=== PATIENT | male | born 1975 | race Caucasian/White ===

== ENCOUNTER 2023-04-12 23:08 | Emergency (ER) | payer OTHER, SELFPAY ==
[2023-04-12 23:18] VITALS: BP 122/65; PULSE 75; RESP 18; TEMP 36.3; O2SAT 97; BMI 29.5
--- NOTE | 2023-04-13 01:20 | ED.GENADULT ---
HPI - General Adult General Chief complaint: Skin/Abscess/Foreign Body Stated complaint: lower abd pain Time Seen by Provider: 04/13/23 00:57 Source: patient Mode of arrival: ambulatory Limitations: no limitations History of Present Illness HPI narrative: 47-year-old male prediabetic patient came in for evaluation of left-sided lower chest/upper abdominal rash only on the left side and patient is concern of shingles. No fever, no chills, no visual symptoms or eye pain foot to sensitivity. No sick contact. Pain started 1st as burning sensation to the left side of the chest and upper abdomen now the rash is full of fluids. Related Data Previous Rx's Medication Instructions Recorded oxycodone 5 mg tablet 5 mg PO Q8H PRN pain #10 tabs 04/13/23 prednisone 20 mg tablet 20 mg PO BID #10 tabs 04/13/23 valacyclovir 1 gram tablet 1,000 mg PO TID #7 tabs 04/13/23 (Valtrex) Allergies Allergy/AdvReac Type Severity Reaction Status Date / Time No Known Allergies Allergy Verified 04/12/23 23:16 [No Known Allergies*] Review of Systems Review of Systems: All other systems are reviewed and are negative Constitutional: Reports as per HPI and Reports no additional constitutional complaints Eyes: Reports as per HPI and Reports no additional eye complaints Reports system reviewed and no additional complaints, except as documented Cardiovascular: Reports as per HPI and Reports no additional cardiovascular complaints Respiratory: Reports as per HPI and Reports no additional respiratory complaints Gastrointestinal: Reports as per HPI and Reports no additional gastrointestinal complaints Genitourinary: Reports no additional female genitourinary complaints Musculoskeletal: Reports no additional musculoskeletal complaints Skin/Breast: Reports system reviewed and no additional complaints, except as docu Psychiatric: Reports no additional psychiatric complaints Endocrine: Reports no additional endocrine complaints Hematologic/Lymphatic: Reports no additional hematologic/lymphatic complaints Allergic/Immunologic: Reports no additional allergic/immunologic complaints Reports system reviewed and no additional complaints, except as documented and Reports Abnormal speech present PENDING SALE TO [facility] Social History Social History Advance Directives: No Advance Directives Information Provided: No Physical Exam ED Vital Signs: Vital Signs - 24 hr 04/12/23 23:18 Temperature 97.4 F Pulse Rate 75 Respiratory Rate 18 Blood Pressure 122/65 Pulse Oximetry 97 Oxygen Delivery Method Room Air BMI result Body Mass Index 29.5 Vital signs have been reviewed as appeared to be correct. Blood pressure normal. Heart rate normal. Respiration rate normal. Temperature normal. Oxygen saturation normal. Appearance: Alert. Oriented X3. No acute distress. Head: Normal external exam. Normocephalic. Atraumatic. No Cash signs noted. No raccoon eyes noted Eyes: PERRLA. EOMI. Conjunctiva and sclera normal. Eyelids normal. ENT: TM's Normal. Pharynx normal. Uvula midline. Moist mucous membranes. No trismus noted. No drooling noted. No muffled voice noted. Neck: Normal inspection. Neck supple. FROM. No adenopathy. Thyroid Normal. No meningeal signs. No neck mass noted. CVS: Normal heart rate and rhythm. Heart sound normal. No murmurs noted. Pulses normal throughout. Respiratory: No respiratory distress. Painless inspiration. Breath sounds normal. No wheezes/rales/rhonchi noted. Chest nontender. Diffuse vesicular rashes on the left side of the chest do not pass the midline along the intercostal dermatomes rash on erythematous base. No accessory muscle usage noted or decreased air movement noted. Abdomen: Soft and nontender. Bowel sounds normal in all 4 quadrants. No distention noted. No organomegaly noted. No visible injury noted. Back: No CVA tenderness. Full range of motion noted. Skin: Skin warm and dry. Normal skin color. Normal skin turgor. No rashes/lesions/lacerations noted. Extremities: No lower extremity edema. Extremities exhibit normal range of motion. Extremities nontender. Neuro: Oriented X 3. Cranial nerve exam: II-XII are grossly intact No motor deficit. No sensory deficit. Reflexes normal. Course Course Course Narrative: Herpes zoster to the left side of the chest will start the patient on Valtrex/prednisone/oxycodone and follow-up with PCP. Patient was instructed to seek immediate medical attention if he develops any ophthalamic symptoms. Medical Decision Making Differential Diagnosis Differential Diagnoses: The differential diagnosis associated with the presentation includes (contact dermatitis, herpes zoster, cellulitis.) Admission/Observation Consideration of admission/observation: Escalation of care including admission/observation considered Lab Data MDM Lab Attestation statement: I reviewed the patient's lab results. Discharge Plan Discharge Clinical Impression: Herpes zoster Patient Disposition: Home, Self-Care Instructions: Shingles (ED) Prescriptions: New valacyclovir [Valtrex] 1 gram tablet 1,000 mg PO TID Qty: 7 0RF prednisone 20 mg tablet 20 mg PO BID Qty: 10 0RF oxycodone 5 mg tablet 5 mg PO Q8H PRN (Reason: pain) Qty: 10 0RF Rx Instructions: Partial Fill upon patient request.
[2023-04-13] MEDS: oxyCODONE HCl Immed Release 5 MG TABLET PO (01:26)
[2023-04-13 01:34] LABS: Glucose, Whole Blood 88 mg/dL (60-115)
== END 2023-04-13 01:29 | disposition home or self-care (01) ==
PROVIDERS: Emergency Provider Emergency Medicine
DX: B02.8 Zoster with other complications (principal); R21 Rash and other nonspecific skin eruption; Z79.899 Other long term (current) drug therapy
CPT/HCPCS: 82947; 99283

== ENCOUNTER 2023-11-09 08:46 | Outpatient (AMB) | payer OTHER, SELFPAY ==
[2023-11-09 08:50] VITALS: BP 122/78; PULSE 77; O2SAT 98; BMI 30.2
--- NOTE | 2023-11-09 08:50 | A.OFFPC_ITS ---
Vital Signs 11/09/23 08:50 Height 5 ft 9 in Weight 204 lb 8 oz BMI 30.2 BP 122/78 Blood Pressure Location Rt brachial Position Sitting Pulse 77 Pulse Source Pulse Oximeter Pulse Oximetry (%) 98 Oxygen Delivery Method Room Air Intake Visit Reasons: Est Care Pre-Diabetic Intake Note: Pt is here to est care Allergies No Known Allergies [No Known Allergies*] Allergy (Verified 11/09/23 09:02) Medication List - Last Reconciled 11/09/23 by FEDE Etienne No Known Home Meds Tobacco use date assessed: 11/09/23 Dental Screening Dental Screen Date: 11/09/23 Did you have a dental visit in the last 12 months?: No Did you have a dental problem in the last 6 months where you did not have access to dental care?: No Was dental information given to patient?: No HPI HPI Comments History of Present Illness Details Patient is a 48-year-old male here to establish care. He has not seen a primary care physician in 6 years. He is due for PSA, will order. He is due for colonoscopy, will refer. He is up-to-date on his immunizations. Patient states that he has a primary concern of intermittent bilateral flank pain, and increasing GERD symptoms over the past year. The patient states that he has tried omeprazole in the past with little relief. He states that when he wakes up in the morning he can feel reflux in the back of his throat. Denies sore throat, cough.Patient states that he has to sleep sitting upright at night. he states that his stomach does get distended, and can feel pain under his ribs bilaterally. He does get some relief after bowel movement. denies constipation, diarrhea. He states that his stool consistency is normal in the color is normal as well. [facility] Family History Maternal Grandfather Prostate cancer Social History Housing: House Patient Tobacco Use Status: Former Tobacco user Quit Date: quit 30 years ago e-Cigarette/Vaping Use: Never Used Second Hand Smoke Exposure: No service: No Current occupational status: employed Current occupational exposures/hazards: No Cognitive needs: No Hearing needs: No Vision needs: No Questionnaire PHQ-9 Over the last 2 weeks, how often have you been bothered by any of the following problems? 1. Little interest or pleasure in doing things: not at all 2. Feeling down, depressed, or hopeless: not at all 3. Trouble falling or staying asleep, or sleeping too much: not at all 4. Feeling tired or having little energy: not at all 5. Poor appetite or overeating: not at all 6. Feeling bad about yourself - or that you are a failure or have let yourself or your family down: not at all 7. Trouble concentrating on things, such as reading the newspaper or watching television: not at all 8. Moving or speaking so slowly that other people could have noticed. Or the opposite - being so fidgety or restless that you have been moving around a lot more than usual: not at all 9. Thoughts that you would be better off or of hurting yourself in some way: not at all Total score: 0 Depression Screening Interpretation: Negative Depression Screening Done: Yes 16235 - PHQ-9 Billing: Yes Source: Developed by Drs. Rahat Brewer, Zoila Smith, Willi Cheng and colleagues, with an educational caleb from [employer]. Thrive Questionnaire Date Thrive assessed: 11/09/23 I am a: Patient What is your living situation today?: I have a steady place to live Within the past 12 months, did the food you bought not last and you didn't have the money to get more?: Never true Within the past 12 months, did you worry whether your food would run out before you got money to buy more?: Never true Do you have trouble paying for medicines?: No Do you have trouble getting transportation to medical appointments?: No Do you have trouble paying your heating and electricity bill?: No Do you have trouble taking care of your child, family member or friend?: No Do you have trouble with day-to-day activities such as bathing, preparing meals, shopping, managing finances, etc.?: No Are you currently unemployed and looking for a job?: No Are you interested in more education?: No THRIVE Score: 0 AUDIT C Alcohol Use Questionnaire (AUDIT-C) 1. How often do you have a drink containing alcohol?: 2-4 times a month 2. How many drinks containing alcohol do you have on a typical day when you are drinking?: 3 or 4 3. How often do you have six or more drinks on one occasion?: Less than monthly Total Score: 4 ONESIMO-7 AMB Questionnaire ONESIMO-7 Date ONESIMO - 7 assessed: 11/09/23 Feeling nervous, anxious, or on edge: 0 = Not at all Not being able to stop or control worryin = Not at all Worrying too much about different things: 0 = Not at all Trouble relaxin = Not at all Being so restless that it is hard to sit still: 0 = Not at all Becoming easily annoyed or irritable: 0 = Not at all Feeling afraid as if something awful might happen: 0 = Not at all Total ONESIMO-7 score (0-4 normal; 5-9 mild; 10-14 moderate; 15-21 severe): 0 Source: Developed by Drs. Rahat Brewer, Zoila Smith, Willi Cheng and colleagues, with an educational caleb from [employer]. ONESIMO-7 Assessment Billing ONESIMO-7 Assessment Tool: ONESIMO-7 Assessment 89900 Review of Systems Const Details: Constitutional : No Weight loss, No Fever, No Chills, No Fatigue, No Malaise ENT/Mouth : No sore throat, No Rhinorrhea. Patient states he bites the side of his mouth and tongue when sleeping. Eyes: Admits re-occuring stye of the left upper eyelid. Admits eye pain. Cardiovascular : No Chest Pain, No SOB, No Dyspnea on Exertion, No Orthopnea, No Edema, No Palpitations Respiratory : No Cough, No Sputum, No Wheezing Gastrointestinal : No Nausea, No Vomiting, No Diarrhea, No Constipation, No Hematochezia, No Melena Genitourinary : No Dysuria, No Urinary Frequency, No Hematuria. Admits intermittent bilateral flank pain that can get worse with movement. Admits intermittent abdominal distention. Musculoskeletal : No joint pain, No Myalgias, No Joint Swelling Skin : Admits excema on left inner thigh, itchiness, and irriated by his pant seems. Neuro : No Weakness, No Numbness, No Dizziness, No Headache Psych : No Anxiety/Panic, No Depression Heme/Lymph: No Bruising, No Bleeding,No Lymphadenopathy Endocrine : No Polyuria, No Polydipsia All other systems reviewed and are negative Physical exam (Primary Care) Vital Signs: Last Vital Signs Pulse 77 11/09/23 08:50 BP 122/78 11/09/23 08:50 Pulse Ox 98 11/09/23 08:50 Oxygen Delivery Method Room Air 11/09/23 08:50 Vital signs reviewed stable. BMI result Body Mass Index 30.2 Tobacco/Smoking Status: Tobacco use Status Tobacco use date assessed 11/09/23 11/09/23 08:57 Patient Tobacco Use Status Former Tobacco user 11/09/23 08:57 e-Cigarette/Vaping Use Never Used 11/09/23 08:57 Depression Screening Interpretation: Negative Const Other: Appearance: Alert.? Oriented X3.? Head: Normocephalic, atraumatic. Eyes: Pupils equal, round and reactive to light.?Style of left upper eyelid. No discharge. No vision change. ENT: Pharynx normal.?+ Bite lynn on side of tongue and mouth. Neck: Normal inspection.? Neck supple.?Full ROM. CVS: Normal heart rate and rhythm.? Pulses normal.? Respiratory: No respiratory distress.? Breath sounds normal.? Abdomen: Soft and nontender.? Skin: Scaling patch, quarter sized, inner left medial thigh. Extremities: No lower extremity edema.? No calf ttp. 5/5 strength to bilateral upper and lower extremities Back: No midline tenderness, no C-spine tenderness, full range of motion, CVA tenderness bilaterally Neuro: Oriented X 3.? No motor deficit.? No sensory deficit. 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 Will give patient pantoprazole sodium to be taken in the morning every day. Patient understands that it may take several weeks for acid level in his stomach to reduce. He has also been educated on foods to avoid. He has been educated on lifestyle changes. Code(s): K21.9 - Gastro-esophageal reflux disease without esophagitis Qualifiers: Esophagitis presence: esophagitis presence not specified Qualified Code(s): K21.9 - Gastro-esophageal reflux disease without esophagitis (2) Flank pain: Code(s): R10.9 - Unspecified abdominal pain Plan: Patient states he has occasional intermittent flank pain bilaterally. Pain is sometimes worse in the morning after sleeping on the side. Will order renal ultrasound to rule out renal calculi. (3) Hordeolum externum (stye): Comment: Patient has recurrent stye of the left eyelid. Will give erythromycin base to be taken as directed. Patient will get referral to Ophthalmology. Denies change in vision Code(s): H00.019 - Hordeolum externum unspecified eye, unspecified eyelid Qualifiers: Laterality: left Eyelid: upper Qualified Code(s): H00.014 - Hordeolum externum left upper eyelid Plan: Will refer to Ophthalmology (4) Atopic eczema: Comment: Patient has scaling patch on left inner thigh roughly size the corner. Stride [id number] cortisone cream with little relief. Has tried antifungal cream with little relief. Will order triamcinolone, will refer to Dermatology Code(s): L20.9 - Atopic dermatitis, unspecified Qualifiers: Atopic dermatitis type: unspecified Qualified Code(s): L20.9 - Atopic dermatitis, unspecified Plan: Take your medications as prescribed. If you were prescribed antibiotics today, it is important that you take your medication to their entirety, do not skip any doses, do not finish them early. Follow-up with your primary care provider this week. Return to the emergency department with new or worsening symptoms. Such as fevers, chills, chest pain, shortness of breath, nausea, vomiting, dizziness, headache, vision changes, lethargy In case of emergency call 911 Plan Will follow-up with physical exam in 3 months. Orders: Orders Complete Blood Count Auto Diff Today Z13.0 - Encounter for screening for diseases of the blood and blood-forming organs and certain disorders involving the immune mechanism Lipid Panel Today Z13.220 - Encounter for screening for lipoid disorders PSA,Total (Free>4and<10) Today Z12.5 - Encounter for screening for malignant neoplasm of prostate Vitamin B6 Today Z13.21 - Encounter for screening for nutritional disorder Vitamin B12 Today Z13.21 - Encounter for screening for nutritional disorder UA CC w/rflx Micro + Cult Today Z13.89 - Encounter for screening for other disorder AMB Hemoglobin A1c Today Z13.9 - Encounter for screening, unspecified Lipase Today R10.9 - Unspecified abdominal pain US renal BI Today R10.9 - Unspecified abdominal pain Comprehensive Met. Panel Today R73.03 - Prediabetes Vitamin D 25-OH (D2 and D3) Today Z13.21 - Encounter for screening for nutritional disorder TSH reflex Free T4 Today Z13.29 - Encounter for screening for other suspected endocrine disorder Referrals Ophthalmology Referral H00.019 - Hordeolum externum unspecified eye, unspecified eyelid Gastroenterology Referral K21.9 - Gastro-esophageal reflux disease without esophagitis, Z12.11 - Encounter for screening for malignant neoplasm of colon Dermatology Referral L20.9 - Atopic dermatitis, unspecified Medications: New simethicone (Gas Relief (simethicone)) 180 mg PO ONCE PRN 30 caps 0RF abdominal distention triamcinolone acetonide 0.5% Apply directly to itchy patch 1 appl topical DAILY 15 grams 0RF erythromycin 0.5 inches ophthalmic (eye) BID 3.5 grams 0RF pantoprazole 20 mg PO DAILY 90 tabs 0RF pantoprazole 40 mg (2 x 20 mg) PO DAILY 90 tabs 0RF Coding Level of Care Code New Pt Level 3 (88025) Diagnoses Gastroesophageal reflux disease, unspecified whether esophagitis present K21.9 Esophagitis presence: esophagitis presence not specified Flank pain R10.9 Hordeolum externum of left upper eyelid H00.014 Laterality: left Eyelid: upper Atopic dermatitis, unspecified type L20.9 Atopic dermatitis type: unspecified Additional Codes ONESIMO-7 Assessment Billing - ONESIMO-7 Assessment Tool: ONESIMO-7 Assessment 52663 ([id number]) Time Spent (min) 35
== END 2023-11-09 10:05 | disposition home or self-care (01) ==
PROVIDERS: Visit Provider Nurse Practitioner Primary Care
DX: K21.9 Gastro-esophageal reflux disease without esophagitis (principal); R10.9 Unspecified abdominal pain; H00.014 Hordeolum externum left upper eyelid; L20.9 Atopic dermatitis, unspecified
CPT/HCPCS: 83036; 99204

== ENCOUNTER 2023-11-09 09:51 | Outpatient (REF) | payer OTHER, SELFPAY ==
[2023-11-09 13:27] LABS: MANUAL DIFF FLAG NO
[2023-11-09 13:37] LABS: Appearance Urine Clear; Color Urine Yellow; Glucose Urine UA Negative (Negative); Leukocyte Esterase Urine Negative (Negative); Nitrite Urine Negative (Negative); Specific Gravity - Urine 1.025 (1.005-1.025); Urine Blood Negative (Negative); Urine Ketones Negative (Negative); Urine Protein Negative (Neg-Trace)
[2023-11-09 13:41] LABS: Basophils Absolute Auto 0.1 X10*3/uL (0.0-0.2); Eosinophils Absolute Auto 0.2 X10*3/uL (0.0-0.4); Hematocrit 45.7 % (42.0-52.0); Imm Gran Abs Auto 0.01 X10*3/uL (0.00-0.03); Imm Gran Pct Auto 0.2 % (0.0-0.4); Lymphocytes Absolute Auto 1.8 X10*3/uL (1.2-4.9); Lymphocytes Percent Auto 30.4 % (20-40); Mean Corpuscular HGB Conc 32.8 g/dl (31.0-36.0); Mean Corpuscular Volume 88.2 fL (80.0-98.0); Mean Platelet Volume 10.8 fL (9.4-12.4); Monocytes Absolute Auto 0.5 X10*3/uL (0.1-1.2); Monocytes Percent Auto 8.5 % (2-11); Neutrophils Absolute Auto 3.3 x10*3/uL (2.0-8.3); Neutrophils Percent Auto 56.9 % (45-73); Platelet Count 227 X10*3/uL (160-400); Red Blood Count 5.18 X10*6/uL (4.60-5.80); Red Cell Distribution Width 12.5 % (11.0-16.0); White Blood Count 5.8 X10*3/uL (4.8-10.8)
[2023-11-09 13:57] LABS: Alanine Aminotransferase 53 U/L (0-40); Albumin Level 4.5 g/dL (3.5-5.0); Alkaline Phosphatase 91 U/L (39-117); Anion Gap 10 (12-20); Aspartate Amino Transferase 29 U/L (5-37); Bilirubin Total 0.4 mg/dL (0.0-1.0); Blood Urea Nitrogen 15 mg/dL (9-16); Calcium 9.5 mg/dL (8.4-10.2); Carbon Dioxide 28 mmol/L (22-29); Chloride 106 mmol/L (96-108); Cholesterol 210 mg/dL (<200); Estimated Glomerular Filt Rate > 60; Glucose Random 93 mg/dL (60-115); HDL Cholesterol 56 mg/dL (>40); LDL Cholesterol Calculated 144 mg/dL (<100); Lipase 19 U/L (8-78); Sodium 140 mmol/L (135-145); Total Protein 7.7 g/dL (6.5-8.0); Triglycerides 52 mg/dL (<150)
[2023-11-09 14:11] LABS: PSA,Total (Free>4and<10) 0.66 ng/mL (0.00-4.00)
[2023-11-09 14:13] LABS: TSH reflex Free T4 1.35 uIU/mL (0.32-4.0)
[2023-11-09 14:18] LABS: Vitamin B12 531 pg/mL (200-900)
[2023-11-13 15:22] LABS: Vitamin B6 9.9 ng/mL (2.1-21.7)
[2023-11-13 15:33] LABS: Vitamin D 25-OH, D2 <4 ng/mL; Vitamin D 25-OH, D3 16 ng/mL; Vitamin D 25-OH, Total 16 ng/mL (30-100)
== END 2023-11-09 09:52 | disposition home or self-care (01) ==
LOC: HO.HMGCLDS 09:51
PROVIDERS: PCP Nurse Practitioner Primary Care; Visit Provider Nurse Practitioner Primary Care
DX: R73.03 Prediabetes (principal); R10.9 Unspecified abdominal pain; Z13.21 Encounter for screening for nutritional disorder; Z13.0 Encounter for screening for diseases of the blood and blood-forming organs and certain disorders involving the immune mechanism; Z13.220 Encounter for screening for lipoid disorders; Z12.5 Encounter for screening for malignant neoplasm of prostate; Z13.89 Encounter for screening for other disorder; Z13.29 Encounter for screening for other suspected endocrine disorder
CPT/HCPCS: 36415; 80053; 80061; 81003; 82306; 82607; 83690; 84153; 84207; 84443; 85025

== ENCOUNTER 2023-11-28 08:38 | Outpatient (REF) | payer OTHER, SELFPAY ==
--- NOTE | ~2023-11-28 | US_ITS ---
EXAMINATION: US RETROPERITONEAL LIMITED (RENAL ONLY) CLINICAL INFORMATION: Unspecified abdominal pain. Flank pain. COMPARISON: None available. TECHNIQUE: Real-time imaging of the kidneys. FINDINGS: RIGHT KIDNEY: 12.2 x 6.1 x 6.0 cm (SAG x AP x TRV). The kidney is normal in size, contour, and echogenicity. Renal cortical thickness is normal. No calculi or focal parenchymal lesions. No hydronephrosis. LEFT KIDNEY: 10.6 x 5.1 x 5.0 cm (SAG x AP x TRV). The kidney is normal in size, contour, and echogenicity. Renal cortical thickness is normal. No calculi or focal parenchymal lesions. No hydronephrosis. US/US renal BI IMPRESSION: Normal renal ultrasound. No nephrolithiasis or hydronephrosis visible.
== END 2023-11-28 08:39 | disposition home or self-care (01) ==
LOC: HO.HMGCX 08:38
PROVIDERS: PCP Nurse Practitioner Primary Care; Visit Provider Nurse Practitioner Primary Care
DX: R10.9 Unspecified abdominal pain (principal)
CPT/HCPCS: 76775

== ENCOUNTER 2023-12-13 20:44 | Emergency (ER) | payer OTHER, SELFPAY ==
[2023-12-13 21:06] VITALS: BP 129/77; PULSE 89; RESP 18; TEMP 36.6; O2SAT 99; BMI 28.4
[2023-12-13 22:01] LABS: IDNOW Serial# 58CA691E; Strep A Nucleic Acid Negative (Negative)
[2023-12-13 22:30] LABS: Influenza A PCR NEGATIVE (Negative); Influenza B PCR NEGATIVE (Negative); Resp Syncy Virus RNA Qual PCR NEGATIVE (Negative); SARS COV2 PCR INHOUSE NEGATIVE (Negative)
[2023-12-14 00:43] VITALS: BP 109/70; PULSE 82; RESP 16; TEMP 36.9; O2SAT 98
[2023-12-14 02:52] VITALS: BP 143/82; PULSE 72; RESP 16; TEMP 36.9; O2SAT 98
--- NOTE | 2023-12-14 03:57 | ED.GENADULT ---
HPI - General Adult General Chief complaint: Upper Respiratory Symptoms Stated complaint: severe headache Time Seen by Provider: 12/14/23 03:46 Source: patient Mode of arrival: ambulatory Limitations: no limitations History of Present Illness HPI narrative: Patient comes emergency room complaining of head pressure, sore throat, congestion. Patient states that the main reason he came is because of the headache. Patient states that the headache starts in the back and moves up to the top of the head. Patient states that he has been taking Tylenol without any relief. Denies vomiting, denies any trauma. Related Data Previous Rx's Medication Instructions Recorded erythromycin 5 mg/gram (0.5 %) eye 0.5 inch ophthalmic (eye) BID #3.5 11/09/23 ointment grams pantoprazole 20 mg tablet,delayed 40 mg (2 x 20 mg) PO DAILY #90 tabs 11/09/23 release simethicone 180 mg capsule (Gas 180 mg PO ONCE PRN abdominal 11/09/23 Relief (simethicone)) distention #30 caps triamcinolone acetonide 0.5 % 1 appl topical DAILY #15 grams 11/09/23 topical cream ketorolac 10 mg tablet 10 mg PO Q8H PRN pain #7 tabs 12/14/23 Allergies Allergy/AdvReac Type Severity Reaction Status Date / Time No Known Allergies Allergy Verified 12/13/23 21:06 [No Known Allergies*] Review of Systems Review of Systems: Constitutional : No Weight loss, No Fever, No Chills, No Night Sweats, No Fatigue, No Malaise ENT/Mouth : No Hearing loss, No Ear Pain, complaining of Nasal Congestion, No Sinus Pain, No Hoarseness, No sore throat, No Rhinorrhea, No Swallowing Difficulty Eyes: No Eye Pain, No Swelling, No Redness, No Foreign Body, No Discharge, No Vision Changes Cardiovascular : No Chest Pain, No SOB, No Dyspnea on Exertion, No Orthopnea, No Edema, No Palpitations Respiratory : No Cough, No Sputum, No Wheezing, No Smoke Exposure, No Dyspnea Gastrointestinal : No Nausea, No Vomiting, No Diarrhea, No Constipation, No abdominal Pain, No Hematochezia, No Melena Genitourinary : no irregular bleeding, No Dysuria, No Urinary Frequency, No Hematuria, No Urinary Incontinence, No Urgency, No Flank Pain, No Urinary Flow Changes, No Hesitancy Musculoskeletal : No joint pain, No Myalgias, No Joint Swelling Skin : No Skin Lesions, No rash Neuro : No Weakness, No Numbness, No Paresthesias, No Loss of Consciousness, No Dizziness, complaining of Headache Psych : No Anxiety/Panic, No Depression, No SI/HI/AH/VH, No Social Issues, Heme/Lymph: No Bruising, No Bleeding,No Lymphadenopathy Endocrine : No Polyuria, No Polydipsia, No Temperature Intolerance [facility] Family History Family History Maternal Grandfather Prostate cancer Social History Social History Housing: House Patient Tobacco Use Status: Former Tobacco user Quit Date: quit 30 years ago e-Cigarette/Vaping Use: Never Used Second Hand Smoke Exposure: No Advance Directives: No Advance Directives Information Provided: No service: No Current occupational status: employed Current occupational exposures/hazards: No Cognitive needs: No Hearing needs: No Vision needs: No Physical Exam ED Vital Signs: Vital Signs - 24 hr 12/13/23 21:06 12/14/23 00:43 12/14/23 02:52 Temperature 97.9 F 98.4 F 98.4 F Pulse Rate 89 82 72 Respiratory Rate 18 16 16 Blood Pressure 129/77 109/70 143/82 H Pulse Oximetry 99 98 98 Oxygen Delivery Method Room Air Room Air Room Air BMI result Body Mass Index 28.4 Const Other: Appearance: Alert. Oriented X3. No acute distress. Eyes: Pupils equal, round and reactive to light. ENT: Pharynx normal. Neck: Normal inspection. Neck supple. No lymph nodes noted. No crepitus CVS: Normal heart rate and rhythm. Pulses normal. Normal S1 and S2 Respiratory: No respiratory distress. Breath sounds normal. No Wheezing. No rales Abdomen: Soft and nontender. No rigidity. No distention. Skin: Skin warm and dry. Normal skin color. Normal skin turgor. Extremities: No lower extremity edema. No Lacerations. No Rash Neuro: Oriented X 3. No motor deficit. No sensory deficit. Moving all extremities. No slurred speech. CN 2 through 12 grossly intact Psych: calm, cooperative, normal affect Medical Decision Making Medical Decision Making MDM Narrative: -my interpretation of labs: Patient tested negative for COVID, influenza and RSV. -patient likely has a tension headache, bilateral, in the back, no pain in the temples, no sinus pressure -patient being medicated with IV fluids, Reglan, Toradol, Benadryl Differential Diagnosis Differential Diagnoses: The differential diagnosis associated with the presentation includes (Sinusitis, tension headache, migraine headache) Lab Data [facility] Lab Attestation statement: I reviewed the patient's lab results. Labs: Lab Results 12/13/23 12/13/23 Range/Units 21:32 21:33 Influenza Type A (PCR) NEGATIVE (Negative) Influenza Type B (PCR) NEGATIVE (Negative) RSV RNA Qual (PCR) NEGATIVE (Negative) SARS-CoV-2 RNA (RT-PCR) NEGATIVE (Negative) S. pyogenes GrpA WILSON Negative (Negative) Discharge Plan Discharge Clinical Impression: Headache, Acute viral syndrome Patient Disposition: Home, Self-Care Instructions: Acute Headache (ED) Additional Instructions: Please follow-up with your primary care physician tomorrow. If you have any worsening or new symptoms, please return to the emergency room or call 911 Prescriptions: New ketorolac 10 mg tablet 10 mg PO Q8H PRN (Reason: pain) Qty: 7 0RF Rx Instructions: Do not use this medication with NSAIDs No Action simethicone [Gas Relief (simethicone)] 180 mg capsule 180 mg PO ONCE PRN (Reason: abdominal distention) Qty: 30 0RF triamcinolone acetonide 0.5 % cream 1 appl topical DAILY Qty: 15 0RF Rx Instructions: Apply directly to itchy patch erythromycin 5 mg/gram (0.5 %) ointment 0.5 inch ophthalmic (eye) BID Qty: 3.5 0RF pantoprazole 20 mg tablet,delayed release (DR/EC) 40 mg PO DAILY Qty: 90 0RF Stand Alone Forms: Work/School Release
[2023-12-14] MEDS: 0.9 % Sodium Chloride 1,000 ML 999 ML IVCONT (04:13)
[2023-12-14] MEDS: Metoclopramide HCl 10 MG/2 ML VIAL IVPUSH (04:16)
[2023-12-14] MEDS: Ketorolac Tromethamine 30 MG/ML VIAL IVPUSH (04:16)
[2023-12-14] MEDS: diphenhydrAMINE HCL 50 MG/ML VIAL 12.5 MG IVPUSH (04:16)
[2023-12-14 04:17] VITALS: BP 105/50; PULSE 68; RESP 16; TEMP 36.3; O2SAT 97
[2023-12-14 05:08] VITALS: BP 105/50; PULSE 68; RESP 16; TEMP 36.3; O2SAT 97
== END 2023-12-14 05:09 | disposition home or self-care (01) ==
PROVIDERS: Emergency Provider Emergency Medicine; PCP Nurse Practitioner Primary Care
DX: B34.9 Viral infection, unspecified (principal); R51.9 Headache, unspecified; J02.9 Acute pharyngitis, unspecified; Z03.818 Encounter for observation for suspected exposure to other biological agents ruled out
CPT/HCPCS: 0241U; 87651; 96374; 96375; 99284; J1200; J1885; J2765

== ENCOUNTER 2023-12-27 09:07 | Outpatient (AMB) | payer OTHER, SELFPAY ==
[2023-12-27 09:14] VITALS: BP 110/72; PULSE 83; O2SAT 98; BMI 28.1
--- NOTE | 2023-12-27 09:14 | MHC.PC.OV ---
Vital Signs 12/27/23 09:14 Height 6 ft Weight 207 lb 4 oz BMI 28.1 BP 110/72 Blood Pressure Location Rt brachial Position Sitting Pulse 83 Pulse Source Pulse Oximeter Pulse Oximetry (%) 98 Oxygen Delivery Method Room Air Intake Visit Reasons: Annual PE Intake Note: Pt is here for his Annual PE Allergies No Known Allergies [No Known Allergies*] Allergy (Verified 12/27/23 10:58) Medication List - Last Reconciled 12/27/23 by FEDE Etienne pantoprazole 40 mg (2 x 20 mg) PO DAILY triamcinolone acetonide 0.5% 1 appl topical DAILY Tobacco use date assessed: 12/27/23 Dental Screening Dental Screen Date: 12/27/23 Did you have a dental visit in the last 12 months?: No Did you have a dental problem in the last 6 months where you did not have access to dental care?: No Was dental information given to patient?: No HPI HPI Comments History of Present Illness Details Patient is a 48-year-old male in for a sick visit. Patient has a past medical history significant for GERD and abdominal bloating. Patient has GI appointment in 3 weeks, has been taking pantoprazole sodium with good effect. Patient states that he does still have GERD symptoms especially after he drinks water, will order upper GI series. Patient has been educated on proper diet, and foods he should avoid specifically that exacerbate his GERD symptoms. Patient denies vomiting, nausea, diarrhea, chest pain, shortness a breath. Does offer complaint of intermittent constipation. Patient also has hordeolum of left eyelid. Patient has utilize up the Jose Maria ointment in the past with little effect. Has tried warm compress with little effect. Patient has ophthalmology appointment in 1 day does not want to start other medication at this time. Denies vision changes, denies drainage, denies orbital pain, denies fever. Does offer complaint of tenderness over lesion. Patient offers complaint of anxiety, often bites his fingernails, pulls out his hair, frequently eats food, or bites his lip for stress relief. Patient denies SI/HI. Patient states he would like to try therapy. Will meet with community navigator to assist with establishing care with therapist [facility] Family History Maternal Grandfather Prostate cancer Social History Housing: House Patient Tobacco Use Status: Former Tobacco user Quit Date: quit 30 years ago e-Cigarette/Vaping Use: Never Used Second Hand Smoke Exposure: No service: No Current occupational status: employed Current occupational exposures/hazards: No Cognitive needs: No Hearing needs: No Vision needs: No Questionnaire PHQ-9 Over the last 2 weeks, how often have you been bothered by any of the following problems? 1. Little interest or pleasure in doing things: not at all 2. Feeling down, depressed, or hopeless: not at all 3. Trouble falling or staying asleep, or sleeping too much: not at all 4. Feeling tired or having little energy: not at all 5. Poor appetite or overeating: not at all 6. Feeling bad about yourself - or that you are a failure or have let yourself or your family down: not at all 7. Trouble concentrating on things, such as reading the newspaper or watching television: not at all 8. Moving or speaking so slowly that other people could have noticed. Or the opposite - being so fidgety or restless that you have been moving around a lot more than usual: not at all 9. Thoughts that you would be better off or of hurting yourself in some way: not at all Total score: 0 Depression Screening Interpretation: Negative Depression Screening Done: Yes 48044 - PHQ-9 Billing: Yes Source: Developed by Drs. Rahat Brewer, Zoila Smith, Willi Cheng and colleagues, with an educational caleb from [employer]. Thrive Questionnaire Date Thrive assessed: 11/09/23 I am a: Patient What is your living situation today?: I have a steady place to live Within the past 12 months, did the food you bought not last and you didn't have the money to get more?: Never true Within the past 12 months, did you worry whether your food would run out before you got money to buy more?: Never true Do you have trouble paying for medicines?: No Do you have trouble getting transportation to medical appointments?: No Do you have trouble paying your heating and electricity bill?: No Do you have trouble taking care of your child, family member or friend?: No Do you have trouble with day-to-day activities such as bathing, preparing meals, shopping, managing finances, etc.?: No Are you currently unemployed and looking for a job?: No Are you interested in more education?: No THRIVE Score: 0 AUDIT C Alcohol Use Questionnaire (AUDIT-C) 1. How often do you have a drink containing alcohol?: 2-4 times a month 2. How many drinks containing alcohol do you have on a typical day when you are drinking?: 1 or 2 3. How often do you have six or more drinks on one occasion?: Never Total Score: 2 ONESIMO-7 AMB Questionnaire ONESIMO-7 Date ONESIMO - 7 assessed: 12/27/23 Feeling nervous, anxious, or on edge: 0 = Not at all Not being able to stop or control worryin = Not at all Worrying too much about different things: 0 = Not at all Trouble relaxin = Not at all Being so restless that it is hard to sit still: 0 = Not at all Becoming easily annoyed or irritable: 0 = Not at all Feeling afraid as if something awful might happen: 0 = Not at all Total ONESIMO-7 score (0-4 normal; 5-9 mild; 10-14 moderate; 15-21 severe): 0 Source: Developed by Drs. Rahat Brewer, Zoila Smith, Willi Cheng and colleagues, with an educational caleb from [employer]. ONESIMO-7 Assessment Billing ONESIMO-7 Assessment Tool: ONESIMO-7 Assessment 82760 (Patient states he does have behaviors related including biting his nails, biting his lip, pulling hair.) Review of Systems Const Details: Constitutional : No Weight loss, No Fever, No Chills, No Fatigue, No Malaise ENT/Mouth : No sore throat, No Rhinorrhea. Admits nasal congestion. Eyes: No Eye Pain, No Swelling, No Redness. Admits left upper eyelid sore. Cardiovascular : No Chest Pain, No SOB, No Dyspnea on Exertion, No Orthopnea, No Edema, No Palpitations Respiratory : No Cough, No Sputum, No Wheezing Gastrointestinal : No Nausea, No Vomiting, No Diarrhea, Admits some Constipation, No abdominal Pain, No Hematochezia, No Melena, Admits bloating, Admits Reflux. Genitourinary : No Dysuria, No Urinary Frequency, No Hematuria, Musculoskeletal : No joint pain, No Myalgias, No Joint Swelling Skin : No Skin Lesions, No rash Neuro : No Weakness, No Numbness, No Dizziness, No Headache Psych : Admits some Anxiety/Panic, No Depression All other systems reviewed and are negative Physical exam (Primary Care) Vital Signs: Last Vital Signs Pulse 83 12/27/23 09:14 BP 110/72 12/27/23 09:14 Pulse Ox 98 12/27/23 09:14 Oxygen Delivery Method Room Air 12/27/23 09:14 BMI result Body Mass Index 28.1 Tobacco/Smoking Status: Tobacco use Status Tobacco use date assessed 12/27/23 12/27/23 09:19 Patient Tobacco Use Status Former Tobacco user 12/27/23 09:19 e-Cigarette/Vaping Use Never Used 12/27/23 09:19 PHQ-9: PHQ-9 Score PHQ-9: Total score 0 12/27/23 11:00 Depression Screening Interpretation: Negative Thrive Assessment: Date of Thrive Assessment Date Thrive assessed 11/09/23 12/27/23 09:19 Results Reviewed Results Reviewed: Sodium 140 135-145 mmol/L Potassium 4.0 3.3-5.1 mmol/L CL 106 96-108 mmol/L CO2 28 22-29 mmol/L Gap 10 L 12-20 BUN 15 9-16 mg/dL Creat 0.98 0.5-1.4 mg/dL EGFR > 60 NOTE: For -Vincentian individuals, multiply the result by 1.210. Chronic Kidney Disease: Estimated GFR < 60 mL/min/1.73m2 Severe Kidney Disease: Estimated GFR < 15 mL/min/1.73m2 Glucose, Random 93 60-115 mg/dL CA 9.5 8.4-10.2 mg/dL Total Bili 0.4 0.0-1.0 mg/dL AST (GOT) 29 5-37 U/L ALT (GPT) 53 H 0-40 U/L Protein, Total 7.7 6.5-8.0 g/dL Alb 4.5 3.5-5.0 g/dL Triglyceride 52 <150 mg/dL Desirable Triglyceride: less than 150 mg/dL Borderline High Triglyceride 150-199 mg/dL High Triglyceride: 200-499 mg/dL Very High Triglyceride: greater than or equal to 5OO mg/dL Cholesterol 210 H <200 mg/dL Desirable Cholesterol: less than 200 mg/dL Borderline High Cholesterol: 200-239 mg/dL High Cholesterol: greater than 239 mg/dL LDL Calculated 144 H <100 mg/dL Desirable LDL: less than 100 mg/dL Near Optimal/Above Optimal LDL: 110-129 mg/dL Borderline High LDL: 130-159 mg/dL High LDL: 160-189 mg/dL Very High LDL: greater than or equal to 190 mg/dL HDL 56 >40 mg/dL Desirable HDL: greater than 40 mg/dL Note: This HDL assay may give artificially low results in patients with liver disease. Alk Phos 91 39-117 U/L Lipase 19 8-78 U/L TSH 1.35 0.32-4.0 uIU/mL Assessment and Plan Assessment & Plan (1) GERD (gastroesophageal reflux disease): Comment: Patient is taking pantoprazole sodium with mild to moderate effect. Still getting GERD effects especially after drinking water. Will order upper GI series, patient has referral in 3 weeks for GI. Code(s): K21.9 - Gastro-esophageal reflux disease without esophagitis Qualifiers: Esophagitis presence: esophagitis presence not specified Qualified Code(s): K21.9 - Gastro-esophageal reflux disease without esophagitis (2) Hordeolum externum (stye): Comment: Patient has ophthalmology appointment in 1 day. Declining medication at this time. Patient educated utilize warm compress. Code(s): H00.019 - Hordeolum externum unspecified eye, unspecified eyelid Qualifiers: Eyelid: upper Laterality: left Qualified Code(s): H00.014 - Hordeolum externum left upper eyelid (3) Anxiety: Comment: Patient met with community navigator to establish therapy. Code(s): F41.9 - Anxiety disorder, unspecified Plan: Take your medications as prescribed. If you were prescribed antibiotics today, it is important that you take your medication to their entirety, do not skip any doses, do not finish them early. Follow-up with your primary care provider this week. Return to the emergency department with new or worsening symptoms. Such as fevers, chills, chest pain, shortness of breath, nausea, vomiting, dizziness, headache, vision changes, lethargy In case of emergency call 911 Plan Follow-up in 3 months. Orders: Orders [place] upper GI series Today H00.014 - Hordeolum externum left upper eyelid, K21.9 - Gastro-esophageal reflux disease without esophagitis Coding Level of Care Code Est Pt Level 4 (66498) Diagnoses Gastroesophageal reflux disease, unspecified whether esophagitis present K21.9 Esophagitis presence: esophagitis presence not specified Hordeolum externum of left upper eyelid H00.014 Eyelid: upper Laterality: left Anxiety F41.9 Additional Codes ONESIMO-7 Assessment Billing - ONESIMO-7 Assessment Tool: ONESIMO-7 Assessment 57694 ([id number]) Time Spent (min) 45
== END 2023-12-27 10:45 | disposition home or self-care (01) ==
PROVIDERS: PCP Nurse Practitioner Primary Care; Visit Provider Nurse Practitioner Primary Care
DX: K21.9 Gastro-esophageal reflux disease without esophagitis (principal); H00.014 Hordeolum externum left upper eyelid; F41.9 Anxiety disorder, unspecified
CPT/HCPCS: 99214

== ENCOUNTER 2024-01-09 09:17 | Outpatient (AMB) | payer OTHER, SELFPAY ==
[2024-01-09 09:24] VITALS: BP 118/72; PULSE 74; O2SAT 97; BMI 28.3
--- NOTE | 2024-01-09 09:24 | A.OFFPC_ITS ---
Vital Signs 01/09/24 09:24 Height 6 ft Weight 209 lb BMI 28.3 BP 118/72 Blood Pressure Location Lt brachial Position Sitting Pulse 74 Pulse Source Pulse Oximeter Pulse Oximetry (%) 97 Oxygen Delivery Method Room Air Intake Visit Reasons: 2WK F/U Meds Intake Note: patient is here for 2 week follow up regarding medication Director Community Organization Required: No Accompanied by: Self / Same As Patient Allergies No Known Allergies [No Known Allergies*] Allergy (Verified 01/09/24 09:24) Tobacco use date assessed: 12/27/23 Dental Screening Dental Screen Date: 01/09/24 Did you have a dental visit in the last 12 months?: Yes Did you have a dental problem in the last 6 months where you did not have access to dental care?: No Was dental information given to patient?: Patient has dentist HPI HPI Comments History of Present Illness Details Patient is a 48-year-old male in today for sick visit. Patient states that he is having episodes of lower back pain over the past 2-3 weeks. 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 Patient has been utilizing Tylenol with mild to moderate effect. Patient denies tingling or numbness, denies any trauma to the area. Patient also states he is having increased issues biting his nails, biting his lip, and pulling his hair. As previous appointment he was set up with community navigator to assist in finding therapist for behavioral therapy. Patient has upcoming appointment for that, but would like medication assistance as well. Patient denies SI/HI. He states that he generally feels happy but has certain points during the day of high anxiety due to his job, he feels that biting his lip and his nails and pulling on his hair is a stress reaction. Patient will be started on escitalopram 5 mg, has been educated on the common side effects, and will have a follow-up and 6 weeks. [facility] Surgical History No pertinent past surgical history Family History Maternal Grandfather Prostate cancer Social History Housing: House Patient Tobacco Use Status: Former Tobacco user Quit Date: quit 30 years ago e-Cigarette/Vaping Use: Never Used Second Hand Smoke Exposure: No service: No Current occupational status: employed Current occupational exposures/hazards: No Cognitive needs: No Hearing needs: No Vision needs: No Questionnaire PHQ-9 Over the last 2 weeks, how often have you been bothered by any of the following problems? 00625 - PHQ-9 Billing: Patient declined-do not bill Source: Developed by Zoila Zapata Kurt Kroenke and colleagues, with an educational caleb from [employer]. Thrive Questionnaire Date Thrive assessed: 11/09/23 ONESIMO-7 AMB Questionnaire ONESIMO-7 Date ONESIMO - 7 assessed: 12/27/23 Source: Developed by Zoila Zapata Kurt Kroenke and colleagues, with an educational caleb from [employer]. ONESIMO-7 Assessment Billing ONESIMO-7 Assessment Tool: pt declined-do not bill Review of Systems Const All systems reviewed & are unremarkable except as noted in HPI and below Card Denies chest pain and Denies dyspnea Resp Denies dyspnea Musc Reports back pain (Lower back) Psych Reports anxiety, Denies homicidal ideation and Denies suicidal ideation Physical exam (Primary Care) Vital Signs: Last Vital Signs Pulse 74 01/09/24 09:24 BP 118/72 01/09/24 09:24 Pulse Ox 97 01/09/24 09:24 Oxygen Delivery Method Room Air 01/09/24 09:24 Care Plan Goal for BP management: Vital signs reviewed stable. BMI result Body Mass Index 28.3 Tobacco/Smoking Status: Tobacco use Status Tobacco use date assessed 12/27/23 01/09/24 09:27 Patient Tobacco Use Status Former Tobacco user 01/09/24 09:27 e-Cigarette/Vaping Use Never Used 01/09/24 09:27 Thrive Assessment: Date of Thrive Assessment Date Thrive assessed 11/09/23 01/09/24 09:27 Const Other: Appearance: Alert.? Oriented X3.? No acute distress.? Head: Normocephalic, atraumatic, Neck: Normal inspection.? Neck supple.? CVS: Normal heart rate and rhythm.? Pulses normal.? Respiratory: No respiratory distress.? Breath sounds normal.? Back: No midline tenderness, no C-spine tenderness, full range of motion, no CVA tenderness bilaterally. +paraspinal muscle tenderness, lumbar region. Neuro: Oriented X 3.? No motor deficit.? No sensory deficit. CN 2-12 intact Assessment and Plan Assessment & Plan (1) Anxiety: Comment: Patient met with community navigator to establish therapy. Patient would also like to start medication today. Patient will be started on escitalopram 5 mg p.o. daily. Patient has been educated on side effects of these medications Code(s): F41.9 - Anxiety disorder, unspecified Plan: Take your medications as prescribed. If you were prescribed antibiotics today, it is important that you take your medication to their entirety, do not skip any doses, do not finish them early. Follow-up with your primary care provider this week. Return to the emergency department with new or worsening symptoms. Such as fevers, chills, chest pain, shortness of breath, nausea, vomiting, dizziness, headache, vision changes, lethargy In case of emergency call 911 (2) Lower back pain: Comment: Will obtain lumbar x-ray. Patient will be given diclofenac sodium topical cream. Patient has been to proper ergonomics, heat and cold therapy. Code(s): M54.50 - Low back pain, unspecified Qualifiers: Chronicity: unspecified Back pain laterality: unspecified Sciatica pre sence: without sciatica Qualified Code(s): M54.50 - Low back pain, unspecified Plan: Follow-up in 6 weeks Orders: Orders XR lumbar spine 2-3V Today M54.50 - Low back pain, unspecified Medications: New diclofenac sodium 1% (Arthritis Pain (diclofenac)) apply to single elbow, wrist or hand; for hand includes palm/fingers/back of hand 2 grams topical QID 100 grams 0RF escitalopram oxalate (Lexapro) 5 mg PO DAILY 90 tabs 0RF Coding Level of Care Code Est Pt Level 3 (01268) Diagnoses Anxiety F41.9 Low back pain without sciatica, unspecified back pain laterality, unspecified chronicity M54.50 Chronicity: unspecified Back pain laterality: unspecified Sciatica presence: without sciatica Time Spent (min) 25
== END 2024-01-09 10:59 | disposition home or self-care (01) ==
LOC: HO.HMGC 09:17
PROVIDERS: PCP Nurse Practitioner Primary Care; Visit Provider Nurse Practitioner Primary Care
DX: F41.9 Anxiety disorder, unspecified (principal); M54.50 Low back pain, unspecified
CPT/HCPCS: 99213

== ENCOUNTER 2024-01-09 09:46 | Outpatient (REF) | payer OTHER, SELFPAY ==
--- NOTE | ~2024-01-09 | XR_ITS ---
EXAMINATION: XR LUMBOSACRAL SPINE CLINICAL INFORMATION: Low back pain unspecified COMPARISON: None available. TECHNIQUE: 3 views of the lumbosacral spine. FINDINGS: Bilateral sacroiliac joints are symmetric. Facet arthritis in the lower lumbar spine. Mild multilevel lumbar spondylosis. Lumbar disc space heights are preserved. XR/XR lumbar spine 2-3V IMPRESSION: 1. Facet arthritis in the lower lumbar spine. 2. Mild multilevel lumbar spondylosis.
== END 2024-01-09 09:47 | disposition home or self-care (01) ==
LOC: HO.HMGCX 09:46
PROVIDERS: PCP Nurse Practitioner Primary Care; Visit Provider Nurse Practitioner Primary Care
DX: M54.50 Low back pain, unspecified (principal)
CPT/HCPCS: 72100

== ENCOUNTER 2024-01-18 08:35 | Outpatient (AMB) | payer OTHER, SELFPAY ==
[2024-01-18 08:39] VITALS: BP 119/65; PULSE 77; BMI 27.8
--- NOTE | 2024-01-18 08:39 | A.OFFVIS_ITS ---
Vital Signs 01/18/24 08:39 Height 6 ft Weight 205 lb BMI 27.8 BP 119/65 Blood Pressure Location Rt brachial Position Sitting Pulse 77 Intake Visit Reasons: colo screening, GERD Intake Note: New pt presents today for colo screening. Hx of GERD. Last colo 2010 in [place]. Acid reflux, pain left side when intestine is full Appointment Specialist Required: No Accompanied by: Self / Same As Patient Allergies No Known Allergies [No Known Allergies*] Allergy (Verified 01/18/24 08:43) HPI HPI colo screening, GERD: Details: 48 year old? male here today for pre colonoscopy screening.? Patient was sent to us by her PCP.? Last colonoscopy in [place] in 2010. Patient reports left upper quadrant discomfort, feeling better after bowel movement. Patient reports severe acid reflux, better after starting pantoprazole. However patient does admit that when he is drinking water he will have reflux? Denies any personal or family history of gastrointestinal disease, colon polyps, or CRC.? Denies history of difficulty with sedation or anesthesia in the past.? Negative for history of sleep apnea.? Denies any history of cardiac, renal, pulmonary, or hepatic disease.?? No history of infectious? diseases like hepatitis A, B, C, HIV or tuberculosis.? Patient is not on any anticoagulation therapy. [facility] Surgical History (Updated 01/18/24 @ 08:45 by Maria D Jerome [facility]) Hx of colonoscopy No pertinent past surgical history Family History Maternal Grandfather Prostate cancer Social History Housing: House Alcohol intake: current Alcohol intake frequency: a few times a month Patient Tobacco Use Status: Former Tobacco user Quit Date: quit 30 years ago e-Cigarette/Vaping Use: Never Used Second Hand Smoke Exposure: No service: No Current occupational status: employed Current occupational exposures/hazards: No Cognitive needs: No Hearing needs: No Vision needs: No Review of Systems Const Denies weight gain and Denies weight loss ENT Reports no additional complaints, Denies dysphagia and Denies odynophagia Card Reports no additional complaints Resp Reports no additional complaints GI Denies abdominal pain, Denies belching, Denies melena, Denies bloating, Denies change in bowel habits, Denies dysphagia, Denies excessive flatus, Denies dyspepsia, Denies heartburn, Denies diarrhea, Denies loose stools, Denies nausea, Denies odynophagia and Denies vomiting Reports no additional complaints Musc Reports no additional complaints Neuro Reports no additional complaints Psych Reports no additional complaints Endo Reports no additional complaints Physical Exam Const General: healthy appearing, no acute distress and well developed Nutritional Appearance: well nourished Orientation/consciousness: patient oriented x3 Resp Effort & Inspection: normal respiratory effort, able to speak in complete sentences, no tracheal deviation and symmetric chest movement Auscultation: clear to auscultation bilaterally Cardio Rate: regular rate GI Inspection: Yes normal to inspection and No distended Palpation (GI): Soft to palpation, not firm, nontender and No hepatosplenomegaly present Auscultation: normal bowel sounds General: Yes no CVA tenderness Back/Spine/Pelvis Back: no CVA tenderness Skin General skin exam: elasticity normal, turgor normal and dry skin Neuro General: patient oriented x3 Psych Appearance: grossly normal Mental Status: mental status grossly normal Assessment & Plan Assessment & Plan (1) GERD (gastroesophageal reflux disease): Code(s): K21.9 - Gastro-esophageal reflux disease without esophagitis Category: Medical Qualifiers: Esophagitis presence: esophagitis presence not specified Qualified Code(s): K21.9 - Gastro-esophageal reflux disease without esophagitis (2) Screen for colon cancer: Code(s): Z12.11 - Encounter for screening for malignant neoplasm of colon Plan Patient denies any cardiac or respiratory symptoms. ?Patient admits to having left upper quadrant pain that is better after bowel movement. Reports acid reflux improved with pantoprazole. However patient does admit that drinking water causes his symptoms worse. Patient will be sent for upper endoscopy to rule out gastritis, esophagitis, duodenitis, gastric or peptic ulcers, H pylori, Baker's. Denies any issues with anesthesia in the past.? Denies any history of sleep apnea.? No history infectious diseases in the past or present.? Not on any anticoagulation therapy.? No family or personal history of colon cancer or polyps.? Patient denies melena, hematochezia, unintentional weight loss or ribbon like stools.? Discussed at length the pre-procedure,? prep, diet & medications as well as what to expect prior, during and after the procedure.?? Stressed the importance of good bowel prep. ?Recommended the use of Vaseline or Calmoseptine OTC & baby wipes with bowel movements to promote comfort.? ?Patient verbalizes understanding and agrees to plan of care.? He was given the opportunity to ask questions and all questions answered.? We will see him after the procedure.? Medications: New polyethylene glycol 3350 (Miralax) As directed by gastroenterology department at [facility] 238 grams PO ONCE 238 grams 0RF Z12.11 - Encounter for screening for malignant neoplasm of colon polyethylene glycol 3350 (Miralax) 17 grams PO DAILY 510 grams 2RF bisacodyl (Dulcolax (bisacodyl)) take 4 tabs at noon the day before your colonoscopy 20 mg (4 x 5 mg) PO ONCE 1 day 4 tabs 0RF Z12.11 - Encounter for screening for malignant neoplasm of colon Coding Level of Care Code New Pt Level 3 (26832) Diagnoses Gastroesophageal reflux disease, unspecified whether esophagitis present K21.9 Esophagitis presence: esophagitis presence not specified Screen for colon cancer Z12.11 Time Spent (min) 40 Comment 30 minutes spent with patient and additional 10 minutes spent reviewing his records
== END 2024-01-18 09:08 | disposition home or self-care (01) ==
PROVIDERS: PCP Nurse Practitioner Primary Care; Referring Provider Nurse Practitioner Primary Care; Visit Provider Nurse Practitioner Family
DX: K21.9 Gastro-esophageal reflux disease without esophagitis (principal); Z12.11 Encounter for screening for malignant neoplasm of colon
CPT/HCPCS: 99203

== ENCOUNTER → 2024-01-18 08:35 | Outpatient (BNVA) | payer OTHER, SELFPAY | PROVIDERS: PCP Nurse Practitioner Primary Care; Visit Provider Nurse Practitioner Family | DX: Z01.818 Encounter for other preprocedural examination (principal); K21.9 Gastro-esophageal reflux disease without esophagitis | CPT/HCPCS: 99202 ==

== ENCOUNTER 2024-02-20 08:47 | Outpatient (AMB) | payer OTHER, SELFPAY ==
[2024-02-20 08:51] VITALS: BP 120/76; PULSE 73; O2SAT 98; BMI 27.5
--- NOTE | 2024-02-20 08:51 | A.OFFPC_ITS ---
Vital Signs 02/20/24 08:51 Height 6 ft Weight 203 lb BMI 27.5 BP 120/76 Blood Pressure Location Rt brachial Position Sitting Pulse 73 Pulse Source Pulse Oximeter Pulse Oximetry (%) 98 Oxygen Delivery Method Room Air Intake Visit Reasons: 6 week follow up Intake Note: pt here for 6wk f/u Anxiety/new meds Allergies No Known Allergies [No Known Allergies*] Allergy (Verified 02/20/24 09:04) Medication List - Last Reconciled 02/20/24 by FEDE Etienne bisacodyl (Dulcolax (bisacodyl)) 20 mg (4 x 5 mg) PO ONCE 1 day diclofenac sodium 1% (Arthritis Pain (diclofenac)) 2 grams topical QID escitalopram oxalate (Lexapro) 5 mg PO DAILY pantoprazole 20 mg PO DAILY polyethylene glycol 3350 (Miralax) 238 grams PO ONCE polyethylene glycol 3350 (Miralax) 17 grams PO DAILY Tobacco use date assessed: 02/20/24 Dental Screening Dental Screen Date: 02/20/24 Did you have a dental visit in the last 12 months?: No Did you have a dental problem in the last 6 months where you did not have access to dental care?: No Was dental information given to patient?: Yes HPI HPI Comments History of Present Illness Details Patient is a 48-year-old male in today for follow-up appointment. Six weeks prior he was started on escitalopram 5 mg p.o. daily for anxiety and depression. He was also connected with director community organization to establish care with therapist. Patient is here today to re-evaluate effectiveness of the new medication. Will give updated PHQ-9 and onesimo 7 today. Patient denies SI/HI. He reports that therapy and Psychiatry. He is being worked up for ADHD. Patient will continue his care for anxiety and ADHD evaluation with Psychiatry. Patient reports that he is still occasionally biting the inside of his mouth and the inside of his lip he reports as sort of a nervous tic. Occasionally developed small mouth ulcers because of this. Patient is establishing care with dentist. Will give Benzocaine topical ointment. He does report incidences of biting the inside of his mouth and lip has decreased since starting the the escitalopram. Will obtain EKG today due to use of escitalopram. [facility] Surgical History Hx of colonoscopy No pertinent past surgical history Family History Maternal Grandfather Prostate cancer Social History Housing: House Alcohol intake: current Alcohol intake frequency: a few times a month Patient Tobacco Use Status: Former Tobacco user e-Cigarette/Vaping Use: Never Used Second Hand Smoke Exposure: No service: No Current occupational status: employed Current occupational exposures/hazards: No Cognitive needs: No Hearing needs: No Vision needs: No Questionnaire PHQ-9 Over the last 2 weeks, how often have you been bothered by any of the following problems? 1. Little interest or pleasure in doing things: not at all 2. Feeling down, depressed, or hopeless: not at all 3. Trouble falling or staying asleep, or sleeping too much: not at all 4. Feeling tired or having little energy: several days 5. Poor appetite or overeating: not at all 6. Feeling bad about yourself - or that you are a failure or have let yourself or your family down: not at all 7. Trouble concentrating on things, such as reading the newspaper or watching television: nearly every day 8. Moving or speaking so slowly that other people could have noticed. Or the opposite - being so fidgety or restless that you have been moving around a lot more than usual: not at all 9. Thoughts that you would be better off or of hurting yourself in some way: not at all Total score: 4 Depression Screening Interpretation: Negative Depression Screening Done: Yes 80345 - PHQ-9 Billing: Yes Source: Developed by Drs. Rahat Brewer, Zoila Smith, Willi Cheng and colleagues, with an educational caleb from [employer]. Thrive Questionnaire Date Thrive assessed: 11/09/23 AUDIT C Alcohol Use Questionnaire (AUDIT-C) 1. How often do you have a drink containing alcohol?: 2-4 times a month 2. How many drinks containing alcohol do you have on a typical day when you are drinking?: 1 or 2 3. How often do you have six or more drinks on one occasion?: Less than monthly Total Score: 3 Score Reviewed/Action Taken: Yes ONESIMO-7 AMB Questionnaire ONESIMO-7 Date ONESIMO - 7 assessed: 02/20/24 Feeling nervous, anxious, or on edge: 3 = Nearly every day Not being able to stop or control worryin = Not at all Worrying too much about different things: 0 = Not at all Trouble relaxin = Nearly every day Being so restless that it is hard to sit still: 0 = Not at all Becoming easily annoyed or irritable: 0 = Not at all Feeling afraid as if something awful might happen: 0 = Not at all Total ONESIMO-7 score (0-4 normal; 5-9 mild; 10-14 moderate; 15-21 severe): 6 Source: Developed by Drs. Rahat Brewer, Zoila Smith, Willi Cheng and colleagues, with an educational caleb from [employer]. ONESIMO-7 Assessment Billing ONESIMO-7 Assessment Tool: ONESIMO-7 Assessment 23412 Review of Systems Const All systems reviewed & are unremarkable except as noted in HPI and below Card Denies chest pain and Denies dyspnea Resp Denies dyspnea Physical exam (Primary Care) Care Plan Goal for BP management: BP is controlled. Tobacco/Smoking Status: Tobacco use Status Tobacco use date assessed 12/27/23 01/09/24 09:27 Patient Tobacco Use Status Former Tobacco user 01/18/24 08:44 e-Cigarette/Vaping Use Never Used 01/18/24 08:44 Depression Screening Interpretation: Negative Thrive Assessment: Date of Thrive Assessment Date Thrive assessed 11/09/23 01/09/24 09:27 Const Other: Appearance: Alert.? Oriented X3.? No acute distress.? Head: Normocephalic, atraumatic, no step-offs or deformities Eyes: Sclera white. ENT: Pharynx normal.?TM intact and pearly adams. Neck: Normal inspection.? Neck supple.? CVS: Normal heart rate and rhythm.? Pulses normal.? Respiratory: No respiratory distress.? Breath sounds normal.? Neuro: Oriented X 3.? No motor deficit.? No sensory deficit. CN 2-12 intact Office Procedures EKG 47064-Xzyxkuqygvryyaknq, Complete Assessment and Plan Assessment & Plan (1) Anxiety: Comment: Patient is establish care with psychiatrist. Currently utilizing 5 mg escitalopram p.o. Code(s): F41.9 - Anxiety disorder, unspecified (2) Mouth sore: Comment: Patient does not have mouth sores at the appointment today. Patient will be given benzocaine topical cream to apply when they do appear. Patient has been advised to set up a dentist. Will also continue evaluation with psychiatrist for behavior modification as patient believes he bites the inside of his cheek and lip when he gets nervous. Code(s): K13.79 - Other lesions of oral mucosa Plan: Will draw CBC and CMP Plan Will follow-up with labs. Orders: Orders AMB EKG-In Office Today R42 - Dizziness and giddiness Comprehensive Met. Panel Today Z91.89 - Other specified personal risk factors, not elsewhere classified Complete Blood Count Auto Diff Today Z13.0 - Encounter for screening for diseases of the blood and blood-forming organs and certain disorders involving the immune mechanism Medications: New benzocaine 10% (Anbesol (benzocaine)) 1 appl mucous membrane BID PRN 9 grams 0RF mouth irritation Coding Level of Care Code Est Pt Level 3 (39272) Diagnoses Anxiety F41.9 Mouth sore K13.79 CPT Codes EKG - CPT: 61175-[id number], Complete ([id number]) Additional Codes ONESIMO-7 Assessment Billing - ONESIMO-7 Assessment Tool: ONESIMO-7 Assessment 54277 ([id number]) Time Spent (min) 28
== END 2024-02-20 12:24 | disposition home or self-care (01) ==
PROVIDERS: PCP Nurse Practitioner Primary Care; Visit Provider Nurse Practitioner Primary Care
DX: F41.9 Anxiety disorder, unspecified (principal); K13.79 Other lesions of oral mucosa
CPT/HCPCS: 93000; 99213

== ENCOUNTER 2024-02-27 09:03 | Outpatient (REF) | payer OTHER, SELFPAY ==
--- NOTE | ~2024-02-27 | FL_ITS ---
EXAMINATION: XR FLUOROSCOPY UPPER GI WITH AIR CLINICAL INFORMATION: Reflux COMPARISON: No prior. TECHNIQUE: Fluoroscopic air contrast upper GI examination was performed utilizing standard techniques with thin and thick barium and effervescent granules. Numerous spot images were obtained. FINDINGS: Lateral cine images of the oropharynx and hypopharynx demonstrate normal swallow mechanism with normal epiglottic inversion and soft palate elevation. No tracheal penetration, glottic or subglottic aspiration identified. No nasopharyngeal reflux present. Hypopharyngeal structures appear normal without evidence of mass or diverticulum. There is mild cricopharyngeal achalasia. Dual and single contrast images of the esophagus demonstrate normal caliber, contour, and mucosal pattern. No evidence of stricture, mass, or ulcerations identified. Esophageal peristalsis is mildly disorganized. No evidence of hiatus hernia identified. A small amount of gastroesophageal reflux is seen in the distal esophagus. Dual contrast and single contrast images of the stomach demonstrated normal contour and mucosal pattern without evidence of mass, ulceration, or other abnormality. There is a delay in gastric emptying as contrast remains in the stomach throughout the entire examination despite multiple positional changes FLUOROSCOPY TIME: 5 minutes 18 seconds Number of Spot Images: 13 Number of Cine: 11 DOSE AREA PRODUCT: 3906 uGy-m2 (microgray-meter squared) FL/FL upper GI series IMPRESSION: 1. Mildly disorganized esophageal peristalsis 2. Mild gastroesophageal reflux 3. Delayed gastric emptying as contrast fails to enter the duodenum or proximal small bowel. Etiology is unclear. Cannot exclude underlying pyloric stenosis/gastric outlet obstruction. Correlation with EGD may be of benefit. This procedure was performed by Scott Montez PA-C, and supervised by Dr. Worthy
== END 2024-02-27 09:04 | disposition home or self-care (01) ==
LOC: HO.XRAY 09:03
PROVIDERS: PCP Nurse Practitioner Primary Care; Visit Provider Nurse Practitioner Primary Care
DX: K21.9 Gastro-esophageal reflux disease without esophagitis (principal); H00.014 Hordeolum externum left upper eyelid
CPT/HCPCS: 74240

== ENCOUNTER → 2024-02-27 09:04 | Outpatient (BNV) | payer OTHER, SELFPAY | PROVIDERS: PCP Nurse Practitioner Primary Care; Visit Provider Physician Assistant Surgical | DX: K21.9 Gastro-esophageal reflux disease without esophagitis (principal) | CPT/HCPCS: 74246 ==

== ENCOUNTER 2024-02-29 09:11 | Outpatient (REF) | payer OTHER, SELFPAY ==
[2024-02-29 09:22] LABS: MANUAL DIFF FLAG NO
[2024-02-29 09:45] LABS: Basophils Absolute Auto 0.1 X10*3/uL (0.0-0.2); Basophils Percent Auto 1.4 % (0-2); Eosinophils Absolute Auto 0.1 X10*3/uL (0.0-0.4); Eosinophils Percent Auto 2.4 % (0-4); Hematocrit 43.6 % (42.0-52.0); Hemoglobin 14.5 g/dl (14.0-18.0); Imm Gran Abs Auto 0.02 X10*3/uL (0.00-0.03); Imm Gran Pct Auto 0.3 % (0.0-0.4); Lymphocytes Absolute Auto 2.1 X10*3/uL (1.2-4.9); Lymphocytes Percent Auto 34.8 % (20-40); Mean Corpuscular HGB Conc 33.3 g/dl (31.0-36.0); Mean Corpuscular Hemoglobin 29.2 pg (27.0-33.0); Mean Corpuscular Volume 87.7 fL (80.0-98.0); Mean Platelet Volume 10.1 fL (9.4-12.4); Monocytes Absolute Auto 0.5 X10*3/uL (0.1-1.2); Monocytes Percent Auto 7.6 % (2-11); Neutrophils Absolute Auto 3.2 x10*3/uL (2.0-8.3); Neutrophils Percent Auto 53.5 % (45-73); Platelet Count 226 X10*3/uL (160-400); Red Blood Count 4.97 X10*6/uL (4.60-5.80); Red Cell Distribution Width 12.6 % (11.0-16.0); White Blood Count 5.9 X10*3/uL (4.8-10.8)
[2024-02-29 10:16] LABS: Alanine Aminotransferase 36 U/L (0-40); Albumin Level 4.4 g/dL (3.5-5.0); Alkaline Phosphatase 92 U/L (39-117); Anion Gap 9 (12-20); Aspartate Amino Transferase 26 U/L (5-37); Bilirubin Total 0.4 mg/dL (0.0-1.0); Blood Urea Nitrogen 17 mg/dL (9-16); Calcium 10.6 mg/dL (8.4-10.2); Carbon Dioxide 30 mmol/L (22-29); Chloride 106 mmol/L (96-108); Estimated Glomerular Filt Rate > 60; Glucose Random 94 mg/dL (60-115); Potassium 3.9 mmol/L (3.3-5.1); Sodium 141 mmol/L (135-145); Total Protein 7.5 g/dL (6.5-8.0)
== END 2024-02-29 09:12 | disposition home or self-care (01) ==
LOC: HO.LAB 09:11
PROVIDERS: PCP Nurse Practitioner Primary Care; Visit Provider Nurse Practitioner Primary Care
DX: Z91.89 Other specified personal risk factors, not elsewhere classified (principal); Z13.0 Encounter for screening for diseases of the blood and blood-forming organs and certain disorders involving the immune mechanism
CPT/HCPCS: 36415; 80053; 85025

== ENCOUNTER 2024-03-12 08:00 | Outpatient (RCR) | payer OTHER, SELFPAY ==
--- NOTE | 2024-02-21 18:47 | MHC.PT.EP ---
[facility] [place] [facility] [place] Office [place] Office [address] Martin Kirby [address] [phone] F: [phone] F: [phone] F: [phone] F: [phone] Physical Therapy Plan of Care Date of Evaluation: 02/20/24 Date of Surgery: n/a Diagnosis: Low back pain, unspecified Assessment: Pt is a pleasant 48yo M who presents to PT with low back pain. Pt presents to PT with current impairments in pain, decreased lumbar ROM, decreased core stabilization, posterior chain tightness, soft tissue restrictions, hypomobility, and impaired posture. He is limited functionally by bending, carrying, and lower extremity ADLs. He is an excellent candidate for skilled PT in order to address current impairments to facilitate return to PLOF. He is recommended to be seen 2x/week for 4 weeks and will be reassessed at that time Frequency and Duration: The patient will be seen 2x/week for 4 weeks Short Term Goals: Pt will be I with HEP to promote self management of symptoms Pt will demonstrate improvements in postural awareness throughout the day Senior Care Goals: Pt will achieve full lumbar flexion ROM to assist with lower extremity ADLs Pt will tolerate prolonged sitting > 20 min with improved posture and minimal to no discomfort Pt will demonstrate improvements in function as evidenced by statistically significant improvement in Modified Oswestry Low Back Pain Disability Questionnaire Treatment Plan: Modalities to reduce pain, spasms and effusion. Manual therapy to restore motion and function. Therapeutic exercise to improve strength and flexibility. Neuromuscular re-education for posture and balance. Therapeutic activities to return to functional activities of daily living. Electronically signed by: Apple Singh, PT, DPT Please sign and return to therapist. Thank you for your referral.
--- NOTE | 2024-05-06 10:41 | MHC.PT.DC ---
[facility] [place] Office [place] Office [place] Office [address] Martin Kirby [address] [phone] F: [phone] F: [phone] F: [phone] F: [phone] Physical Therapy Discharge Report Diagnosis: Low back pain, unspecified Date of Surgery: n/a Date of Evaluation: 02/20/24 Date of Discharge: 05/06/24 Treatments to Date: 4 Cancellations to Date: 5 No Shows to Date: Discharge Status: Visit Non-compliance Discharge Summary: Pt was seen for PT from 02/20/24-03/12/24. He has had multiple cancellations since SOC including 3 cancellations for his last 3 scheduled appointments. He is being D/C from skilled PT per [facility] attendance policy and visit non compliance. Pt current level of function unknown at this time Electronically signed by: Apple Singh, PT, DPT Please sign and return to therapist. Thank you for your referral.
== END 2024-05-06 10:41 | disposition home or self-care (01) ==
LOC: HO.PT 08:00
PROVIDERS: PCP Nurse Practitioner Primary Care; Visit Provider Nurse Practitioner Primary Care
DX: M54.50 Low back pain, unspecified (principal)
CPT/HCPCS: 97110; 97161

== ENCOUNTER 2024-05-27 09:30 | Day surgery (SDC) | payer OTHER, SELFPAY ==
[2024-05-27 09:33] VITALS: BP 108/88; PULSE 72; RESP 18; TEMP 36.4; O2SAT 99; BMI 27.8
[2024-05-27] MEDS: Lactated Ringers 1,000 ML 100 ML IVCONT (09:55)
--- NOTE | 2024-05-27 10:00 | HO.ANESPROP2 ---
Documented by User: Kelsie Cruz NP 05/23/24 14:47 HPI - Anesthesia Eval Consult details Narrative: 48yo M for Upper Endoscopy and Colonoscopy [facility] Active Problems Active Problems: All Active Problems Mouth sore (Acute) Lower back pain (Acute) Anxiety (Acute) Atopic eczema (Acute) Hordeolum externum (stye) (Acute) GERD (gastroesophageal reflux disease) (Acute) Family History Family History Maternal Grandfather Prostate cancer Surgical History Surgical History Hx of colonoscopy No pertinent past surgical history Social History Social History (Reviewed 02/20/24 @ : by FEDE Etienne) Housing: House Alcohol intake: current Alcohol intake frequency: holidays/special occasions only Patient Tobacco Use Status: Former Tobacco user e-Cigarette/Vaping Use: Never Used Second Hand Smoke Exposure: No Have you been hit, kicked, punched, or otherwise hurt by someone within the past year? If so, by whom?: No Are you DNR?: No Advance Directives: No Advance Directives Information Provided: Yes Recently lost weight without trying: No Nutrition Risks: No Nutritional Risk service: No Current occupational status: employed Current occupational exposures/hazards: No Cognitive needs: No Hearing needs: No Vision needs: No Meds Allergies Allergy/AdvReac Type Severity Reaction Status Date / Time No Known Allergies Allergy Verified 02/20/24 09:04 [No Known Allergies*] Assessment and Plan Assessment Anesthesia Assessment: Chart Reviewed Documented by User: Lauren Massey DO 05/27/24 10:11 [facility] Family History Family History Maternal Grandfather Prostate cancer Family history of problems with anesthesia: No Surgical History Surgical History Hx of colonoscopy No pertinent past surgical history History of Problems with Anesthesia: No Social History Social History Housing: House Alcohol intake: current Alcohol intake frequency: holidays/special occasions only Patient Tobacco Use Status: Former Tobacco user e-Cigarette/Vaping Use: Never Used Second Hand Smoke Exposure: No Have you been hit, kicked, punched, or otherwise hurt by someone within the past year? If so, by whom?: No Are you DNR?: No Advance Directives: No Advance Directives Information Provided: Yes Recently lost weight without trying: No Nutrition Risks: No Nutritional Risk service: No Current occupational status: employed Current occupational exposures/hazards: No Cognitive needs: No Hearing needs: No Vision needs: No Meds Allergies Allergy/AdvReac Type Severity Reaction Status Date / Time No Known Allergies Allergy Verified 02/20/24 09:04 [No Known Allergies*] Exam Exam Date and Time: 05/27/24 1000 Height,Weight and Vital Signs: Height 6 ft Weight 92.863 kg Vital Signs Temperature 97.5 F 05/27/24 09:33 Pulse Rate 72 05/27/24 09:33 Respiratory Rate 18 05/27/24 09:33 Blood Pressure 108/88 05/27/24 09:33 Pulse Oximetry 99 05/27/24 09:33 Oxygen Delivery Method Room Air 05/27/24 09:33 Temperature 97.5 F 05/27/24 09:33 Pulse Rate 72 05/27/24 09:33 Respiratory Rate 18 05/27/24 09:33 Blood Pressure 108/88 05/27/24 09:33 Pulse Oximetry 99 05/27/24 09:33 Oxygen Delivery Method Room Air 05/27/24 09:33 Airway Mallampati Class: II TM Dist: >3cm Neck ROM: Full Loose/Missing/Broken Teeth: Yes (broken molar left upper jaw) Heart: S1S2 Lungs: CTAB Assessment and Plan Assessment Anesthesia Assessment: Anesthesia Plan Discussed and Chart Reviewed Final Anesthetic Review Family History of Problems with Anesthesia: No History of Problems with Anesthesia: No NPO: Yes ASA Class: II Final Preanesthetic Review: No Changes in Pt Med Stat, Meds/Allgs Chart Reviewed, Consent Obtained/Reviewed and Anes Risks/Benef Reviewed Patient Risk: Low Procedure Risk: Low Anesthetic Plan Anesthetic Plan: MAC: and Agree w/ Assess. and Plan Disposition: Standard PACU
--- NOTE | 2024-05-27 10:28 | MHC.SHP ---
Pre-Procedural Eval Section A - 24 Hr Update-Section A only Date of Service: 05/27/24 Section B - Complete if H&P > 30 days Chief Complaint: screening,gerd, Relevant Family History (Specify if Yes): No Relevant Social History: None Present Medications: see Short Stay Collaborative assessment Medical History: Significant History (eczema, GERD, anxiety) History of Previous Operations: Relevant previous surgery/procedure and date(s) (Hx of colonoscopy) Allergies: Allergies Allergy/AdvReac Type Severity Reaction Status Date / Time No Known Allergies Allergy Verified 02/20/24 09:04 [No Known Allergies*] Review of Systems Sugical H&P ROS: Negative: Constitution, Cardiovascular, Respiratory, Neurological, Psychiatric, Hem-Onc, Allergic/Immunologic, Gastrointestinal, Genitourinary, Musculoskeletal, Integumentary, Endocrine and Eyes/Ears/Nose/Throat Exam Surgical H&P Exam: Normal: HEENT, Normal: Heart, Normal: Lungs, Normal: Extremities, Normal: Abdomen, Normal: Skin and Normal: Neurological Plan Diagnosis/Plan: Unchanged I have reviewed the history and physical and performed a pertinent physical examination on my patient. No changes have occurred unless specified. Time Spent With Patient Time: Total time managing care of this patient today ____ minutes.
--- NOTE | 2024-05-27 11:02 | HO.OPN-COLON ---
Colonoscopy Operative Note Operative Note Date of Service: 05/27/24 Narrative: Operative Information Procedure Description: EGD, Colonoscopy Indication: screening, GERD Anesthesia: MAC FLEXIBLE TRANSORAL UPPER GASTROINTESTINAL ENDOSCOPY AND COLONOSCOPY PROCEDURE NOTE UPPER ENDOSCOPY Consent: Indications for the procedure and potential complications of bleeding, perforation, reaction to medications and missed diagnosis were discussed with the patient and informed consent was obtained. Instrument: Olympus GIF H 190 J mid size upper endoscope Monitoring: Vital signs and clinical assessment, continuous EKG monitoring, Pulse oximetry, Carbon Dioxide monitoring and blood pressure monitoring were done throughout the procedure. Procedure: The patient was placed in the left lateral decubitis position and pre-procedure medications were administered and a bite block was placed. The endoscope was inserted into the mouth and advanced under direct vision to the third part of duodenum. A careful inspection was made as the upper endoscope was withdrawn including a retroflexed examination of the proximal stomach; Findings and interventions are described below. Findings: Larynx:normal Esophagus: GE junction at 43 cm, diaphragm hiatus at 43 cm, normal mucosa Stomach: atrophic mucosa with few scattered fundic gland polyps. Biopsies were obtained of the mucosa. Grade 2 flap valve on retroflexed examination of the cardia. Duodenum: Normal bulb and descending duodenum, Intervention: Biopsies as noted above, COLONOSCOPY Instrument: Olympus variable stiffness pediatric scope 190L Colonoscopy Monitoring: Vital signs and clinical assessment, continuous EKG monitoring, Pulse oximetry, Carbon Dioxide monitoring and blood pressure monitoring were done throughout the procedure. Colon withdrawal time was 6 minutes. Procedure: The patient was placed in the left lateral decubitis position and pre-procedure medications were administered. After a digital rectal examination of the ano-rectum, the video colonoscope was inserted into the rectum and advanced through the colon to the cecum/TI. The colonoscope was slowly withdrawn in a retrograde panoramic fashion and the colon mucosa was carefully examined including a retroflexed view of the rectum. Findings and interventions are described below. Procedure Difficulty: easy Findings: Terminal Ileum-normal Cecum:normal right sided retroflexion- normal Ascending Colon: normal Transverse Colon -normal Descending Colon:normal Sigmoid Colon: normal Rectum: Retroflexion with small internal hemorrhoids, grade I Anorectum - normal Colon preparation: [place] Bowel Preparation Scale Right colon; 2 Transverse colon: 3 Left colon; 3 (0 = Unprepared colon segment with mucosa not seen due to solid stool that cannot be cleared. 1 = Portion of mucosa of the colon segment seen, but other areas of the colon segment not well seen due to staining, residual stool and/or opaque liquid. 2 = Minor amount of residual staining, small fragments of stool and/or opaque liquid, but mucosa of colon segment seen well. 3 = Entire mucosa of colon segment seen well with no residual staining, small fragments of stool or opaque liquid) Impression and Post Procedure Diagnosis: Endoscopy Findings: atrophic gastric mucosa fundic gland polyps Colonoscopy Findings: internal hemorrhoids Plan: Await Pathology results Repeat Colonoscopy in 10 years or earlier if clinically indicated High fiber diet leaflet avoid straining at stool, epsom salts and sitz bath, anusol supps or cream If h pylori pos then treat Above findings were reviewed with the patient and relevant handouts were provided if indicated.
[2024-05-27 11:06] VITALS: BP 116/70; PULSE 74; RESP 16; TEMP 36.2; O2SAT 97
[2024-05-27 11:21] VITALS: BP 103/71; PULSE 64; RESP 16; O2SAT 97
[2024-05-27 11:36] VITALS: BP 115/66; PULSE 61; RESP 18; O2SAT 100
[2024-05-27 11:51] VITALS: BP 115/66; PULSE 65; RESP 16; TEMP 36.3; O2SAT 100
== END 2024-05-27 12:13 | disposition home or self-care (01) ==
PROVIDERS: PCP Internal Medicine; Visit Provider Internal Medicine Gastroenterology
PROC: (CPT 45378; principal; 2024-05-27 11:50)
DX: Z12.11 Encounter for screening for malignant neoplasm of colon (principal); K64.0 First degree hemorrhoids; K21.9 Gastro-esophageal reflux disease without esophagitis; K31.7 Polyp of stomach and duodenum; K29.40 Chronic atrophic gastritis without bleeding; K44.9 Diaphragmatic hernia without obstruction or gangrene; F41.9 Anxiety disorder, unspecified; L30.9 Dermatitis, unspecified; Z87.891 Personal history of nicotine dependence
CPT/HCPCS: 45378; 43239; 88305; 88313; 88342; J1596; J2704

== ENCOUNTER → 2024-05-27 09:30 | Outpatient (BNV) | payer OTHER, SELFPAY | PROVIDERS: PCP Internal Medicine; Visit Provider Internal Medicine Gastroenterology | DX: K21.9 Gastro-esophageal reflux disease without esophagitis (principal); K29.40 Chronic atrophic gastritis without bleeding; K31.7 Polyp of stomach and duodenum; Z12.11 Encounter for screening for malignant neoplasm of colon; K64.8 Other hemorrhoids | CPT/HCPCS: 43239; 45378 ==